=== PATIENT | female | born 1990 | race Caucasian/White ===

== ENCOUNTER 2022-02-15 01:58 | Emergency (ER) | payer SELFPAY ==
[2022-02-15] MEDS ORDERED: ONDANSETRON ODT 4 MG TABLET TL STA (02:21)
[2022-02-15 02:22] LABS: RAPID STREP SCREEN Negative (Negative)
[2022-02-15] MEDS ORDERED: DEXAMETHASONE 10 MG/ML VIAL PO STA (02:36)
[2022-02-15] MEDS ORDERED: CHERRY SYRUP 10 ML UDC PO ONE (02:36)
--- NOTE | 2022-02-15 02:59 | ED Physician Documentation ---
PD HPI HEENT - Stated complaint Stated Complaint: N/V - Chief complaint Chief Complaint: Heent - History obtained from History obtained from: Patient - Additional information Additional information: Patient is a 31-year-old female with sore throat and congestion since Monday. She initially reported having sore throat starting on Monday with a sick contact the day before with a child she was watching.Over the last few days, the pain has worsened and she feels more irritation in her throat. She has had some nausea and vomiting with phlegm and food she has been eating. She also reports having some vomiting with liquids. She is physically able to swallow but due to nausea vomits it up.She denies fever. She has had her tonsils removed. She does not smoke. She has not tried [id number] medications. She denies chest pain, trouble breathing or abdominal pain. Review of Systems Constitutional: denies: Fever Ears: denies: Drainage/discharge Nose: reports: Congestion Throat: reports: Sore throat. denies: Dental pain / toothache Respiratory: denies: Dyspnea, Cough GI: reports: Nausea, Vomiting. denies: Abdominal Pain : denies: Dysuria Skin: denies: Rash Musculoskeletal: denies: Back pain Neurologic: denies: Headache PD PAST MEDICAL HISTORY - Past Medical History Past Medical History: No - Past Surgical History Past Surgical History: Yes HEENT: Tonsil/Adenoidectomy - Present Medications Home Medications: Ambulatory Orders Medication Instructions Recorded Confirmed Ondansetron Odt [Zofran] 4 mg TL Q6H PRN #10 tablet 02/15/22 - Allergies Allergies/Adverse Reactions: Allergies Allergy/AdvReac Type Severity Reaction Status Date / Time No Known Drug Allergies Allergy Verified 02/15/22 02:04 - Social History Does the pt smoke?: No Smoking Status: Never smoker Does the pt drink ETOH?: No Does the pt have substance abuse?: No - Immunizations Immunizations are current?: No Immunizations: TDAP >10years/unknown PD ED PE NORMAL - General General: Alert and oriented X 3, No acute distress, Well developed/nourished, Other (Laying reclined, tolerating secretions) - HEENT HEENT: Atraumatic, Ears normal, Moist mucous membranes, Pharynx benign, Other (No oral abscess or swelling, normal speech, handling secretions) - Neck Neck: Supple, no meningeal sign - Cardiac Cardiac: RRR, No murmur, Strong equal pulses - Respiratory Respiratory: No respiratory distress, Clear bilaterally - Abdomen Abdomen: Soft, Non tender - Derm Derm: Warm and dry - Extremities Extremities: No edema - Neuro Neuro: Normal speech - Psych Psych: Normal mood Results - Vitals Vitals: Vital Signs - 24 hr 02/15/22 02/15/22 02/15/22 02:04 02:16 03:05 Temperature 36.7 C Heart Rate 99 107 H 90 Respiratory 16 20 19 Rate Blood Pressure 148/93 H 137/100 H 138/100 H O2 Saturation 98 99 98 Oxygen O2 Source Room air - Labs Labs: Laboratory Tests 02/15/22 02:05 Group A Strep Rapid Negative PD MEDICAL DECISION MAKING - ED course Complexity details: re-evaluated patient ED course: 0257 - Patient tolerated p.o. and was able to keep down Decadron. Patient with sore throat for few days. Vital signs reassuring. On exam, no signs of oral swelling or mass or airway compromise. Patient is easily swallowing her secretions and able to tolerate p.o. No episodes of emesis here. Abdomen is soft and nontender. Strep test is negative. Patient given a dose of Decadron. Patient aware to continue with supportive care and advised on strict return precautions. Departure - Departure Disposition: 01 Home, Self Care Clinical Impression: Pharyngitis Qualifiers: Pharyngitis/tonsillitis etiology: unspecified etiology Qualified Code(s): J02.9 - Acute pharyngitis, unspecified Condition: Stable Instructions: ED Pharyngitis Viral Prescriptions: Ondansetron Odt [Zofran] 4 mg TL Q6H PRN #10 tablet PRN Reason: Nausea / Vomiting Comments: Betty - You were evaluated for congestion and a sore throat along with nausea and vomiting.Your strep test is negative. I have given you a dose of Decadron which is a steroid which should help with the inflammation you are feeling in your throat. I have also given you medicine called Zofran which is for nausea And sent a prescription for this medication to the [facility] in [place]. Please take the medication as needed in order to stay hydrated. You could also try saline sprays in the nose to help loosen up the congestion to help prevent it from running down the back of your throat which may be worsening the irritation. Please use Tylenol or Motrin as needed for pain. If your symptoms continue to worsen or you have trouble swallowing, continued vomiting, new pain or any concerns please return to the emergency department. Discharge Date/Time: 02/15/22 03:16
[2022-02-15 03:06] VITALS: BP 138/100
== END 2022-02-15 03:16 | disposition home or self-care (01) ==
LOC: ED 01:58
DX: J02.9 Acute pharyngitis, unspecified (principal)
CPT/HCPCS: 87070; 87430; 99283; 99284; A9270; Q0162